=== PATIENT | female | born 1995 | race Caucasian/White ===

== ENCOUNTER 2020-11-05 11:06 | Emergency (ER) | payer OTHER ==
[~2020-11-05] VITALS: Ht 160 cm; Wt 58.1 kg
[2020-11-05 11:08] VITALS: BP 110/69
[2020-11-05 12:20] VITALS: BP 109/70
== END 2020-11-05 13:23 | disposition home or self-care (01) ==
LOC: EDH 11:06
DX: O99.352 Diseases of the nervous system complicating pregnancy, second trimester (principal); G43.909 Migraine, unspecified, not intractable, without status migrainosus; R20.2 Paresthesia of skin; Z3A.26 26 weeks gestation of pregnancy
CPT/HCPCS: 99281